=== PATIENT | female | born 1945 | race African-American/Black ===

== ENCOUNTER 2018-12-20 14:44 | Inpatient (IN) | payer MEDICARE, MEDICAID ==
[2018-12-20 15:35] LABS: #Eosinphils 0.1 thou/uL (0.0-0.7); #Lymphocytes 1.1 thou/uL (1.20-3.40); #Monocytes 0.3 thou/uL (0.11-0.59); #Neutrophils 6.7 thou/uL (1.40-6.50); %Basophils 0.5 % (0.0-1.0); %Eosinophils 0.7 % (0.0-10.0); %Lymphocytes 12.8 % (21.0-51.0); %Monocytes 3.9 % (0.0-10.0); %Neutrophils 82.1 % (42.0-75.0); Hemoglobin 12.9 g/dL (12.0-16.0); Mean Corpuscular HGB CONC 31.2 g/dL (32.0-36.0); Mean Corpuscular Hemoglobin 28.6 pg (27.0-31.0); Mean Corpuscular Volume 91.7 fL (78.0-98.0); Mean Platelet Volume 9.3 fL (7.4-10.4); Platelet Count 201 thou/uL (130-400); RBC Distribution Width 19.7 % (11.5-14.5); Red Blood Cell (RBC) Count 4.49 mill/uL (4.20-5.40); White Blood Cell (WBC) Count 8.2 thou/uL (4.8-10.8)
[2018-12-20 15:43] LABS: ALT (SGPT) 12 U/L (8-55); AST (SGOT) 15 U/L (5-34); Albumin 4.1 g/dL (3.4-4.8); Alkaline Phosphatase 60 U/L (40-150); Anion Gap 16 mmol/L (10-20); BUN (Urea Nitrogen) 13 mg/dL (9.8-20.1); Bilirubin, Total 0.7 mg/dL (0.2-1.2); Calc. Creatinine Clearance 0 mL/min (70-130); Calcium 10.2 mg/dL (7.8-10.44); Carbon Dioxide 29 mmol/L (23-31); Chloride 93 mmol/L (98-107); Estimated GFR-MDRD 10; Globulin 3.8 g/dL (2.4-3.5); Glucose 195 mg/dL (83-110); Protein, Total 7.9 g/dL (6.0-8.3); Sodium 134 mmol/L (136-145)
[2018-12-20 16:07] LABS: CKMB 1.4 ng/mL (0-6.6)
--- NOTE | 2018-12-20 16:35 | PDOC.FPRHP ---
- History of Present Illness Chief Complaint: chest pain History of Present Illness: 73 yo F with PMH ESRD on HD, DM2 is transferred from [facility] for HTN urgency. Patient received HD this am and reported chest pain which prompted her to go to ER from dialysis. Reports L sided chest pain, feels like pressure. Reports nausea, no vomiting. No radiation. No aggravating or alleviating factors. Pain 7/10 and is unchanged from earlier today. Says she has had similar pain in past but cannot remember when. Reports headache. Denies numbness , tingling, vision changes. Patient has slow speech and cannot remember much. Grandson in room reports she was more talkative earlier in day. Patient lives with daughter. Daughter gives medications and patient unaware if she has missed any doses. However, ER reported that she has missed several days of clonidine. ED Course: 20 labetalol, 10 hydralazine, 325 ASA, 4mg morphine, nitro paste, 40 labetalol, 4 mg zofran, 20 labetalol - Allergies/Adverse Reactions Allergies Allergy/AdvReac Type Severity Reaction Status Date / Time heparin (porcine) Allergy Verified 04/03/17 18:05 - Home Medications Medication Instructions Recorded Confirmed Type Lanthanum Carbonate [Fosrenol] 1,000 mg PO DAILY 04/03/17 04/03/17 History Lisinopril 20 mg PO DAILY 04/03/17 04/03/17 History Minoxidil 10 mg PO DAILY 04/03/17 04/03/17 History Pantoprazole [Protonix] 40 mg PO DAILY PRN 04/03/17 04/03/17 History Simethicone [Gas Relief] 80 mg PO DAILY 04/03/17 04/03/17 History glipiZIDE [Glucotrol Xl] 10 mg PO DAILY 04/03/17 04/03/17 History hydrALAZINE HCl 25 mg PO DAILY 04/03/17 04/03/17 History Amlodipine [Norvasc] 10 mg PO DAILY #30 tab 04/07/17 Rx Carvedilol [Coreg] 25 mg PO BID-WM #60 tab 04/07/17 Rx hydrALAZINE [Apresoline] 50 mg PO TID #0 tab 04/07/17 Rx - History PMHx: DM2, ESRD on HD, HTN, CAD, anemia PSHx: L arm fistula, cath with L stent FHx: patient unable to remember Social: No tobacco, alcohol, drug use. - Review of Systems General: denies: fever/chills Eyes: denies: vision changes ENT: denies: nasal congestion Respiratory: denies: cough, shortness of breath Cardiovascular: reports: chest pain. denies: palpitation, edema Gastrointestinal: reports: nausea. denies: vomiting, abdominal pain Genitourinary: denies: incontinence, dysuria Skin: denies: rashes, lesions Musculoskeletal: denies: pain, tenderness Neurological: denies: numbness, syncope - Vital signs BP: 222/99 HR: 82 RR: 22 Tmax: 98.1 Pox: 99% on RA Wt: 84 kg - Physical Exam Constitutional: well developed -Constitutional: flat affect HEENT: normocephalic and atraumatic, PERRLA, conjunctiva clear, grossly normal vision, grossly normal hearing, oropharynx clear, other (dry mucus membranes) Neck: supple, trachea midline Heart: RRR, normal S1/S2, pulses present, no edema Lungs: CTAB, no respiratory distress, no rales/rhonchi, no wheezing Abdomen: soft, non-tender, bowel sounds present Musculoskeletal: normal structure, normal tone Neurological: no focal deficit Skin: no rash/lesions, other (decreased cap refill) Heme/Lymphatic: no unusual bruising or bleeding Psychiatric: other (flat affect) FMR H&P: Results - Labs Result Diagrams: 12/20/18 15:25 12/20/18 15:11 Lab results: WBC 8.2 thou/uL (4.8-10.8) 12/20/18 15:25 Hgb 12.9 g/dL (12.0-16.0) 12/20/18 15:25 Hct 41.2 % (36.0-47.0) 12/20/18 15:25 MCV 91.7 fL (78.0-98.0) 12/20/18 15:25 Plt Count 201 thou/uL (130-400) 12/20/18 15:25 Neutrophils % 82.1 % (42.0-75.0) H 12/20/18 15:25 Sodium 134 mmol/L (136-145) L 12/20/18 15:11 Potassium 4.0 mmol/L (3.5-5.1) 12/20/18 15:11 Chloride 93 mmol/L (98-107) L 12/20/18 15:11 Carbon Dioxide 29 mmol/L (23-31) 12/20/18 15:11 BUN 13 mg/dL (9.8-20.1) 12/20/18 15:11 Creatinine 4.48 mg/dL (0.6-1.1) H 12/20/18 15:11 Glucose 195 mg/dL (83-110) H 12/20/18 15:11 Calcium 10.2 mg/dL (7.8-10.44) 12/20/18 15:11 Total Bilirubin 0.7 mg/dL (0.2-1.2) 12/20/18 15:11 AST 15 U/L (5-34) 12/20/18 15:11 ALT 12 U/L (8-55) 12/20/18 15:11 Alkaline Phosphatase 60 U/L (40-150) 12/20/18 15:11 CK-MB (CK-2) 1.4 ng/mL (0-6.6) 12/20/18 15:11 B-Natriuretic Peptide 890.8 pg/mL (0-100) H 12/20/18 15:25 Serum Total Protein 7.9 g/dL (6.0-8.3) 12/20/18 15:11 Albumin 4.1 g/dL (3.4-4.8) 12/20/18 15:11 FMR H&P: A/P - Problem List (1) Hypertensive urgency Current Visit: Yes Status: Acute Code(s): I16.0 - HYPERTENSIVE URGENCY (2) Chest pain Current Visit: Yes Status: Acute Code(s): R07.9 - CHEST PAIN, UNSPECIFIED (3) Diabetes mellitus Current Visit: No Status: Acute Code(s): E11.9 - TYPE 2 DIABETES MELLITUS WITHOUT COMPLICATIONS (4) ESRD (end stage renal disease) Current Visit: No Status: Acute Code(s): N18.6 - END STAGE RENAL DISEASE (5) HLD (hyperlipidemia) Current Visit: No Status: Acute Code(s): E78.5 - HYPERLIPIDEMIA, UNSPECIFIED (6) HTN (hypertension) Current Visit: No Status: Acute Code(s): I10 - ESSENTIAL (PRIMARY) HYPERTENSION - Plan 73 yo F with PMH ESRD on HD, DM2 presents with HTN and chest pain. HTN urgency - s/p multiple prns in outside ED, EMS - no signs of end organ damage at this time. Unsure of baseline mental status. Will discuss this with daughter when present. - could be 2/2 possible medication noncompliance, rebound from missed clonidine - SBP initially 240s. Goal BP 180-190s for now - Labetalol prn, hydralazine prn, zofran prn and restart home medications Chest pain w/ indeterminate trop - trop 0.037, at baseline compared to prior. Will continue to trend. - no EKG changes - Heart score 5 - nitro paste on, nitro prn, morphine prn ESRD on HD - T//Sat - continue home fosrenol HTN - continue home carvedilol ,clonidine, lisinopril, hydralazine, minoxidil DM2 - accuchecks and SSI for now - will restart home glipizide CAD s/p stent - continue home ASA, statin GERD - continue home PPI Diet: Renal/CC Ppx: SCDs (allergy to heparin) Dispo: admit to telemtry, expected stay >2 midnights Case discussed with Dr. Phillips. FMR H&P: Upper Level - Pertinent history 73F taken to outside ER after developing CP after dialysis. She has had this CP on and off for the past 3 days. It is described as a squeezing pressure that is left-sided and does not radiate. Patient has known CAD but all of her procedures as well as her night monitor are at [facility]. She was given 60mg Labetalol, 10 mg hydralazine, and a nitro patch en route. Her CP resolved at outside facility, per ED physician. Here, her CP has returned. - Pertinent findings 209/89 mmHg 79 bpm 22RR 100% on RA 98.1F Gen: no apparent distress; very flat affect; answering questions appropriately HEENT: dry MM CV: RRR, no murmurs Pulm: CTA-B Abd: soft; nontender; no distention Ext: no cyanosis or edema EKG: no signs of ischemia or infarct CXR at outside facility read as negative CBC all normal Na: 134 trop: .037, appears to be at baseline BNP: 890 - Plan Date/Time: 12/20/18 1635 I, Yimi Yoo, have evaluated this patient and agree with findings/plan as outlined by international representative resident. Pertinent changes/additions are listed here. HTN urgency: no signs of end organ damage at this time. Troponin and EKG not consistent with ACS, though we will continue to trend trops and repeat EKGs. This is likely due to medication non-compliance as patient has skipped her clonidine for the last several days. We will get further history from the daughter when she arrives, who is more familiar with patients baseline and PMH. Systolic BP near 190 mmHg as of now. Will try to keep it between 180-190 mmHg for the first 12 hours since she presented with systolic near 250 mmHg. Labetalol 20 mg IV q15m to maintain appropriate pressures. If she becomes resistant to IV push medications or starts to show signs of end organ damage, we will switch her to a cardene gtt. CAD: will speak with daughter regarding her prior history. Chart review reveals prior stent placement, though this was never verified. HEART score of 5 ESRD on HD: just finished dialysis. Will consult Nephro if she needs extended stay in hospital. Addendum - Attending - Attending Attestation Date/Time: 12/20/18 2417 I personally evaluated the patient and discussed the management with Dr. Sandoval / Fredo. I agree with the History, Examination, Assessment and Plan documented above with any addition or exceptions noted below. Patient is a 73-year-old female with history of end stage renal disease on hemodialysis and uncontrolled hypertension presenting with chest pain and elevated blood pressures. Patient began having chest pain after her dialysis session earlier today. Blood pressures obtained which were highly elevated and therefore she was sent to the emergency room for evaluation. Initial enzymes and EKG were normal but the patient was transferred to this institution for higher level of care. Upon arrival she was noted to have systolic blood pressure s greater than 220. She was given nitroglycerin as well as hydralazine and labetalol. Repeat cardiac enzymes were indeterminate, which appears to be the patients chronic baseline. Per the patients family member, she has likely been missing doses of her medication over the last few days. also, I noted in previous records that she apparently had a heart cath in 2017 at [facility] in [place] which was negative, though she does have a history of coronary artery disease. patient will be admitted to telemetry for hypertensive urgency. She currently does not have any evidence of end organ damage, but we will trend her troponins as well as EKGs and monitor on telemetry. We will work to get her blood pressures under better control with PRN medications and resume her home medications to try and obtain better control. Suspect that once we resume her home medications her condition will improve, however if it does not she may need to be transferred to the intensive care unit for titratable IV therapy. consider nephrology consultation if it appears she will have a prolonged stay as she will likely need dialysis on Saturday.continue other home medications for her chronic medical conditions and titrate as needed. Rachel Phillips MD
[2018-12-20] MEDS ORDERED: Minoxidil 10 MG TAB PO SCH ×2 (18:00→18:45)
[2018-12-20 18:46] LABS: Troponin I 0.036 ng/mL (< 0.028)
[2018-12-20 21:38] LABS: Troponin I 0.034 ng/mL (< 0.028)
[2018-12-20 21:55] VITALS: BMI 24.5
[2018-12-20] MEDS ORDERED: Ondansetron ODT 4 MG TAB PO PRN (22:52)
[2018-12-20] MEDS ORDERED: Dextrose 5% in Water 1,000 ML IV PRN (22:52)
[2018-12-20] MEDS ORDERED: Nitroglycerin 0.4 MG TAB 1 EACH PO PRN (22:52)
[2018-12-20] MEDS ORDERED: Atorvastatin Calcium 20 MG TAB PO SCH (22:52)
[2018-12-20] MEDS ORDERED: HumaLOG 300 UNITS/3 ML VIAL SC PRN (22:52)
[2018-12-20] MEDS ORDERED: hydrALAZINE 20 MG/ML VIAL SLOW IVP PRN (22:52)
[2018-12-20] MEDS ORDERED: Morphine 4 MG/ML VIAL SLOW IVP PRN (22:52)
[2018-12-20] MEDS ORDERED: Dextrose 50% Abboject 50 ML SYRINGE SLOW IVP PRN (22:52)
[2018-12-20] MEDS ORDERED: Acetaminophen 325 MG TAB PO PRN (22:52)
[2018-12-20] MEDS ORDERED: Labetalol HCl 100 MG/20 ML VIAL SLOW IVP PRN (22:52)
[2018-12-20] MEDS ORDERED: Ondansetron PF 4 MG/2 ML Vial IVP PRN (22:52)
[2018-12-20] MEDS ORDERED: cloNIDine 0.3 MG TAB PO SCH (23:15)
[2018-12-20] MEDS ORDERED: Carvedilol 25 MG TAB PO SCH (23:15)
[2018-12-20 23:34] LABS: Troponin I 0.038 ng/mL (< 0.028)
[2018-12-20 23:52] LABS: INR-International Normal Ratio 3.1; Prothrombin Time 31.7 SEC (12.0-14.7)
[2018-12-21 02:55] LABS: Troponin I 0.044 ng/mL (< 0.028)
--- NOTE | 2018-12-21 06:19 | PDOC.FM ---
- Subjective Subjective: Ms. Otoole feels better this morning. Chest pain resolved last night. Tolerating PO intake well. Reports mild headache that has improved compared to last night. Nitro patch is off. Daughter not present. Patient has no concerns. Patient more talkative than on admission. Seems to have some difficulty remembering certain details. - Objective MAR Reviewed: Yes Vital Signs & Weight: Vital Signs (12 hours) Temp Pulse Resp BP BP Pulse Ox 12/21/18 03:29 98.5 F 78 18 164/74 H 98 12/21/18 01:30 165/80 H 12/20/18 23:47 99.1 F 80 16 190/80 H 100 12/20/18 23:31 190/80 H 12/20/18 23:02 99 12/20/18 21:37 98.6 F 88 18 202/96 H 100 Weight Weight 64.954 kg I&O: 12/19/18 12/20/18 12/21/18 06:59 06:59 06:59 Intake Total 350 Balance 350 Result Diagrams: 12/21/18 07:05 12/20/18 15:11 Phys Exam - Physical Examination Constitutional: NAD Respiratory: no wheezing, clear to auscultation bilateral Cardiovascular: RRR, no significant murmur Gastrointestinal: soft, non-tender, positive bowel sounds Musculoskeletal: no edema Neurological: non-focal Skin: normal turgor Dx/Plan (1) Hypertensive urgency Code(s): I16.0 - HYPERTENSIVE URGENCY Status: Acute (2) Chest pain Code(s): R07.9 - CHEST PAIN, UNSPECIFIED Status: Acute (3) Diabetes mellitus Code(s): E11.9 - TYPE 2 DIABETES MELLITUS WITHOUT COMPLICATIONS Status: Acute (4) ESRD (end stage renal disease) Code(s): N18.6 - END STAGE RENAL DISEASE Status: Acute (5) HLD (hyperlipidemia) Code(s): E78.5 - HYPERLIPIDEMIA, UNSPECIFIED Status: Acute (6) HTN (hypertension) Code(s): I10 - ESSENTIAL (PRIMARY) HYPERTENSION Status: Acute - Plan Plan: 73 yo F with PMH ESRD on HD, DM2 presents with HTN and chest pain. HTN urgency, improving - no signs of end organ damage at this time. Unsure of baseline mental status. Will discuss this with daughter when present. - could be 2/2 possible medication noncompliance, rebound from missed clonidine - SBP initially 240s. Goal BP 180-190s initially. BP 160s now without any recent prns. - Labetalol prn, hydralazine prn, zofran prn and continue home medications today Chest pain w/ indeterminate trop, improved - chest pain resolved - trop 0.037->0.044 max - no EKG changes - Heart score 5 - continue home isosorbide mononitrate ESRD on HD - T//Sat - continue home fosrenol HTN - continue home amlodipine, carvedilol, clonidine, lisinopril DM2 - accuchecks and SSI for now - continue home glipizide CAD s/p stent - continue home ASA, statin, warfarin GERD - continue home PPI Diet: Renal/CC Ppx: SCDs (allergy to heparin) Addendum - Attending - Attending Attestation Date/Time: 12/21/18 2508 I personally evaluated the patient and discussed the management with Dr. Sandoval. I agree with the History, Examination, Assessment and Plan documented above with any addition or exceptions noted below. Patient improved this morning, still hypertensive but improved. Resuming all home meds today and will titrate as needed. Not due for HD until Saturday so will hold off on Nephro consultation. Labs overall stable.
[2018-12-21 07:24] LABS: #Eosinphils 0.1 thou/uL (0.0-0.7); #Lymphocytes 1.4 thou/uL (1.20-3.40); #Monocytes 0.6 thou/uL (0.11-0.59); %Basophils 0.1 % (0.0-1.0); %Eosinophils 1.9 % (0.0-10.0); %Lymphocytes 22.4 % (21.0-51.0); %Monocytes 9.7 % (0.0-10.0); %Neutrophils 65.9 % (42.0-75.0); Hemoglobin 12.2 g/dL (12.0-16.0); Mean Corpuscular HGB CONC 31.7 g/dL (32.0-36.0); Mean Corpuscular Volume 91.6 fL (78.0-98.0); Mean Platelet Volume 9.8 fL (7.4-10.4); Platelet Count 195 thou/uL (130-400); RBC Distribution Width 19.6 % (11.5-14.5); Red Blood Cell (RBC) Count 4.21 mill/uL (4.20-5.40); White Blood Cell (WBC) Count 6.1 thou/uL (4.8-10.8)
[2018-12-21 07:51] LABS: Anion Gap 17 mmol/L (10-20); BUN (Urea Nitrogen) 23 mg/dL (9.8-20.1); Calc. Creatinine Clearance 9 mL/min (70-130); Calcium 9.6 mg/dL (7.8-10.44); Carbon Dioxide 26 mmol/L (23-31); Cardiac Risk 3.3 (Less than 4.5); Chloride 94 mmol/L (98-107); Cholesterol 140 mg/dl (< 200 Desired); Estimated GFR-MDRD 9; Glucose 164 mg/dL (83-110); HDL Cholesterol 43 mg/dL (>60 Neg Risk); LDL Cholesterol, Calculated 71 mg/dL; Potassium 4.5 mmol/L (3.5-5.1); Sodium 132 mmol/L (136-145); Triglycerides 128 mg/dL (Less than 150)
[2018-12-21] MEDS ORDERED: Carvedilol 25 MG TAB PO SCH (08:00)
[2018-12-21] MEDS ORDERED: Atorvastatin Calcium 20 MG TAB PO SCH (09:00)
[2018-12-21] MEDS ORDERED: Lisinopril 20 MG TAB PO SCH (09:00)
[2018-12-21] MEDS ORDERED: Amlodipine 10 MG TAB PO SCH (09:00)
[2018-12-21] MEDS ORDERED: Folic Acid/Vit B Comp W-C PO SCH (09:00)
[2018-12-21] MEDS ORDERED: Aspirin 81 mg Enteric Coated Tablet PO SCH ×2 (09:00)
[2018-12-21] MEDS ORDERED: Carvedilol 3.125 MG TAB PO SCH (09:00)
[2018-12-21] MEDS ORDERED: hydrALAZINE 25 MG TAB PO SCH (09:00)
[2018-12-21] MEDS ORDERED: cloNIDine 0.3 MG TAB PO SCH (09:00)
[2018-12-21] MEDS ORDERED: Minoxidil 10 MG TAB PO SCH (09:00)
[2018-12-21] MEDS: cloNIDine 0.3 MG TAB PO SCH ×2 (09:03→14:51)
[2018-12-21] MEDS: Carvedilol 6.25 MG TAB PO SCH ×2 (09:04→16:46)
[2018-12-21] MEDS: Lanthanum Carbonate 500 mg Tablet PO SCH ×3 (09:05→16:46)
[2018-12-21] MEDS ORDERED: Warfarin Sodium 5 MG TAB PO SCH (17:00)
[2018-12-21 17:21] VITALS: BP 144/67; TEMP 98.3
[2018-12-21 17:42] LABS: HBSAg Index 0.25 S/CO (0-0.99); Hep B Surf Ag Non-Reactive S/CO (NonReactive)
--- NOTE | 2018-12-22 13:58 | DIS ---
DATE OF ADMISSION: 12/20/2018 DATE OF DISCHARGE: 12/21/2018 RESIDENT: Rosy Sandoval DO ADMITTING ATTENDING: Carmelo Kim MD DISCHARGE ATTENDING: Carmelo Kim MD. CONSULTS: None. PROCEDURES: None. PRIMARY DIAGNOSES: 1. Hypertensive urgency. 2. Indeterminate troponin. 3. Chest pain. SECONDARY DIAGNOSES: 1. End-stage renal disease, on hemodialysis. 2. Hypertension. 3. Type 2 diabetes. 4. Coronary artery disease status post stent. 5. Gastroesophageal reflux disease. DISCHARGE MEDICATIONS: 1. Pantoprazole 40 mg p.o. daily p.r.n. 2. Lisinopril 20 mg p.o. daily. 3. Fosrenol 1000 mg p.o. t.i.d. with meals. 4. Glipizide 10 mg p.o. b.i.d. 5. Amlodipine 10 mg p.o. daily. 6. RenaPlex-D tablet one tablet p.o. daily. 7. Isosorbide mononitrate 30 mg p.o. b.i.d. 8. Clonidine 0.3 mg p.o. t.i.d. 9. Atorvastatin 20 mg p.o. daily. 10. Aspirin 81 mg p.o. daily. 11. Warfarin 5 mg p.o. daily. 12. Carvedilol 6.25 mg p.o. b.i.d. with meals. DISCONTINUED MEDICATIONS: None. HISTORY OF PRESENT ILLNESS: This is a 73-year-old female who was transferred from [facility] emergency room for hypertensive urgency. The patient reported that after hemodialysis that morning, she began to have chest pain, which prompted her to go to the ER from dialysis. Chest pain was left-sided, associated with nausea and headache. She denied any numbness or vision changes. It was reported that the patient could have missed several days of home clonidine resulting in a blood pressure. Systolic blood pressure initially reported was 245. Medications were used to slowly lower this throughout the hospitalization. Home medications were restarted. The patient's chest pain spontaneously resolved. There were no EKG changes. Her troponin was indeterminate at 0.037. These were trended and not elevated any further. On review of records, this appears to be the patient's baseline troponin level. There was no concern for ACS. The patient's blood pressure gradually improved and she was stable on home medications without any p.r.n's needed. Blood pressure was in the 130s to 140s systolic at time of discharge. DISPOSITION: Stable. DISCHARGE INSTRUCTIONS: 1. Location, home. 2. Diet, heart healthy and diabetic. 3. Activity, as tolerated. 4. Follow up with PCP, Dr. Eliseo Love within 7 days. Job ID: [id number]
== END 2018-12-21 18:39 | disposition home or self-care (01) | DRG 304 ==
LOC: ERS 14:44 → 2NO 16:23
PROVIDERS: ADMIT Student in an Organized Health Care Education/Training Program; ATTEND Student in an Organized Health Care Education/Training Program
DX: I16.0 Hypertensive urgency (principal); N18.6 End stage renal disease; E78.5 Hyperlipidemia, unspecified; I12.0 Hypertensive chronic kidney disease with stage 5 chronic kidney disease or end stage renal disease; R07.9 Chest pain, unspecified; I25.10 Atherosclerotic heart disease of native coronary artery without angina pectoris; K21.9 Gastro-esophageal reflux disease without esophagitis; E11.22 Type 2 diabetes mellitus with diabetic chronic kidney disease; Z91.14 Patient's other noncompliance with medication regimen; Z98.61 Coronary angioplasty status; Z99.2 Dependence on renal dialysis
CPT/HCPCS: 36415; 36416; 80048; 80053; 80061; 82553; 83880; 84484; 85025; 85610; 87340; 93005; 94760; 96374; 96376; J2405; J3490

== ENCOUNTER 2019-01-20 10:36 | Emergency (ER) | payer MEDICARE, MEDICAID ==
[2019-01-20 11:24] LABS: Prothrombin Time 46.4 SEC (12.0-14.7)
[2019-01-20 11:33] LABS: #Eosinphils 0.1 thou/uL (0.0-0.7); #Lymphocytes 1.3 thou/uL (1.20-3.40); #Monocytes 0.4 thou/uL (0.11-0.59); #Neutrophils 4.2 thou/uL (1.40-6.50); %Basophils 0.8 % (0.0-1.0); %Eosinophils 2.2 % (0.0-10.0); %Lymphocytes 21.3 % (21.0-51.0); %Monocytes 6.5 % (0.0-10.0); %Neutrophils 69.2 % (42.0-75.0); Hemoglobin 9.6 g/dL (12.0-16.0); Mean Corpuscular HGB CONC 31.5 g/dL (32.0-36.0); Mean Corpuscular Hemoglobin 29.2 pg (27.0-31.0); Mean Corpuscular Volume 92.9 fL (78.0-98.0); Mean Platelet Volume 9.8 fL (7.4-10.4); Platelet Count 170 thou/uL (130-400); RBC Distribution Width 20.3 % (11.5-14.5); Red Blood Cell (RBC) Count 3.28 mill/uL (4.20-5.40); White Blood Cell (WBC) Count 6.1 thou/uL (4.8-10.8)
[2019-01-20 11:38] LABS: ALT (SGPT) 8 U/L (8-55); AST (SGOT) 12 U/L (5-34); Albumin 3.7 g/dL (3.4-4.8); Alkaline Phosphatase 64 U/L (40-150); Anion Gap 11 mmol/L (10-20); BUN (Urea Nitrogen) 14 mg/dL (9.8-20.1); Bilirubin, Total 0.4 mg/dL (0.2-1.2); Calc. Creatinine Clearance 0 mL/min (70-130); Calcium 9.7 mg/dL (7.8-10.44); Carbon Dioxide 33 mmol/L (23-31); Chloride 95 mmol/L (98-107); Estimated GFR-MDRD 11; Globulin 3.1 g/dL (2.4-3.5); Glucose 176 mg/dL (83-110); Potassium 3.3 mmol/L (3.5-5.1); Protein, Total 6.8 g/dL (6.0-8.3); Sodium 136 mmol/L (136-145)
== END 2019-01-20 14:58 | disposition home or self-care (01) ==
LOC: ERS 10:36
DX: T82.838A Hemorrhage due to vascular prosthetic devices, implants and grafts, initial encounter (principal); R55 Syncope and collapse; E11.9 Type 2 diabetes mellitus without complications; D50.9 Iron deficiency anemia, unspecified; I12.0 Hypertensive chronic kidney disease with stage 5 chronic kidney disease or end stage renal disease; N18.6 End stage renal disease
CPT/HCPCS: 36415; 80053; 85025; 85610; 85730; 93005

== ENCOUNTER 2020-01-05 08:06 | Observation (INO) | payer MEDICARE, MEDICAID ==
[2020-01-05 08:44] LABS: #Eosinphils 0.3 thou/uL (0.0-0.7); #Lymphocytes 1.5 thou/uL (1.20-3.40); #Monocytes 0.6 thou/uL (0.11-0.59); #Neutrophils 6.2 thou/uL (1.40-6.50); %Basophils 0.3 % (0.0-1.0); %Eosinophils 3.2 % (0.0-10.0); %Lymphocytes 16.9 % (21.0-51.0); %Monocytes 7.2 % (0.0-10.0); %Neutrophils 72.5 % (42.0-75.0); Hemoglobin 12.9 g/dL (12.0-16.0); Mean Corpuscular HGB CONC 33.5 g/dL (32.0-36.0); Mean Corpuscular Hemoglobin 31.7 pg (27.0-31.0); Mean Corpuscular Volume 94.7 fL (78.0-98.0); Platelet Count 145 thou/uL (130-400); RBC Distribution Width 17.8 % (11.5-14.5); Red Blood Cell (RBC) Count 4.08 mill/uL (4.20-5.40); White Blood Cell (WBC) Count 8.6 thou/uL (4.8-10.8)
--- NOTE | 2020-01-05 09:02 | RAD ---
EXAM: Portable chest PROVIDED CLINICAL HISTORY: Chest pain COMPARISON: 05/30/2019 FINDINGS: Cardiac and mediastinal silhouette is unchanged in appearance. Tracheal deviation rightward is redemo nstrated, presumably on the basis of goiter. No focal consolidation, pleural fluid or pneumothorax evident. IMPRESSION: No evidence for an acute cardiopulmonary process.
[2020-01-05 09:06] LABS: ALT (SGPT) 13 U/L (8-55); AST (SGOT) 31 U/L (5-34); Albumin 4.5 g/dL (3.4-4.8); Alkaline Phosphatase 118 U/L (40-110); Anion Gap 24 mmol/L (10-20); BUN (Urea Nitrogen) 50 mg/dL (9.8-20.1); Bilirubin, Total 0.4 mg/dL (0.2-1.2); CK (CPK) 55 U/L (29-168); Calc. Creatinine Clearance 0 mL/min (70-130); Calcium 9.9 mg/dL (7.8-10.44); Carbon Dioxide 19 mmol/L (23-31); Chloride 93 mmol/L (98-107); Estimated GFR-MDRD 6; Glucose 215 mg/dL (83-110); Lipase 125 U/L (8-78); Protein, Total 8.5 g/dL (6.0-8.3); Sodium 130 mmol/L (136-145)
[2020-01-05] MEDS ORDERED: hydrALAZINE 20 MG/ML VIAL ONE (09:13)
[2020-01-05 09:30] LABS: Platelet Morphology Comment Appears Adequate; RBC Morphology Normal
[2020-01-05] MEDS ORDERED: Nitroglycerin 2% Ointment 1 INCH/1 GM Packet ONE (09:41)
[2020-01-05 10:49] LABS: Troponin I 0.035 ng/mL (< 0.028)
[2020-01-05 12:47] LABS: PTT 31.3 SEC (22.9-36.1); Prothrombin Time 13.1 SEC (12.0-14.7)
--- NOTE | 2020-01-05 13:29 | CON ---
DATE OF CONSULTATION: HISTORY OF PRESENT ILLNESS: Ms. Otoole is a 75-year-old black female with ESRD and was admitted for chest pain/shortness of breath. Chest x-ray initially showed no acute cardiopulmonary process. However, BNP is elevated. In addition, troponin I was noted to be elevated. For that reason, the patient will be admitted. She will be undergoing hemodialysis today due to the potassium of 6.0. REVIEW OF SYSTEMS: Positive for chest pain. Positive for mild shortness of breath. No nausea. No vomiting. No diarrhea. No constipation. No productive cough. No fever or chills. No abdominal pain. No gross hematuria. No dysuria. No urinary frequency. No syncopal episode. HOME MEDICATIONS: Include the following; 1. Glipizide 10 mg p.o. b.i.d. 2. Clonidine 0.3 mg p.o. t.i.d. 3. Coumadin 5 mg daily. 4. Protonix 40 mg daily p.r.n. 5. Lisinopril 20 mg daily. 6. Fosrenol 1000 mg p.o. t.i.d. with meals. 7. Imdur ER 30 mg p.o. b.i.d. 8. Carvedilol 6.25 mg p.o. b.i.d. 9. Atorvastatin 20 mg daily. 10. Aspirin 81 mg daily. 11. Amlodipine 10 mg tablet once a day. PAST MEDICAL HISTORY: 1. ESRD from hypertensive nephropathy. 2. Longstanding history of hypertension. 3. History of hyperphosphatemia. 4. Hyperlipidemia. 5. History of coronary artery disease. PAST SURGICAL HISTORY: 1. Status post AV fistula placement. 2. Status post cardiac cath with a stent placement. 3. Status post cuffed hemodialysis catheter placement. SOCIAL HISTORY: The patient lives with her daughter. She lives in the [facility]. No tobacco. No alcohol. No IV drug abuse. Status post blood transfusion. ALLERGIES: Unknown PHYSICAL EXAMINATION: VITAL SIGNS: Blood pressure 122/70, heart rate 70. GENERAL: The patient is awake, alert, comfortable, not in distress. SKIN: Adequate turgor. HEENT: She has pinkish conjunctivae. Anicteric sclerae. NECK: No neck mass. No carotid bruits. No JVD. CHEST: No deformities. LUNGS: Clear breath sounds. HEART: Normal sinus rhythm. No murmurs. No gallops. No rubs. ABDOMEN: Globular, soft, and nontender. No masses. EXTREMITIES: No edema. No deformities. LABORATORY DATA: Laboratories of January 05, 2020; white count 8.6, hemoglobin 12.9. Sodium 130, potassium 6, chloride 93, carbon dioxide 19, BUN 50, creatinine 8.07 , glucose 215, AST 31, ALT 13, albumin 4.5, and lipase 125. BNP is 1057. Troponin I is 0.035. IMAGING DATA: Chest x-ray, no acute cardiopulmonary process. ASSESSMENT AND PLAN: 1. Chest pain. The patient will be admitted for rule out myocardial infarction. 2. End-stage renal disease, stable. We will continue current hemodialysis regimen on Saturday, , and Saturday. Fluid removal as tolerated by this patient. Please note, her potassium is noted at 6.0. She is being given Kayexalate and lactulose. 3. Mild hyperkalemia for hemodialysis today. Agree with current management. Job ID: [id number] MTDD
[2020-01-05] MEDS ORDERED: Ondansetron PF 4 MG/2 ML Vial IVP PRN ×2 (13:32→14:58)
[2020-01-05] MEDS ORDERED: Ondansetron ODT 4 MG TAB SL PRN (13:32)
[2020-01-05] MEDS ORDERED: Senokot S 8.6-50 MG TAB PO PRN (14:58)
[2020-01-05] MEDS ORDERED: Acetaminophen 325 MG TAB PO PRN (14:58)
[2020-01-05] MEDS ORDERED: Ondansetron ODT 4 MG TAB PO PRN (14:58)
[2020-01-05] MEDS ORDERED: Calcium Carbonate 500 MG ChewTAB PO PRN (14:58)
[2020-01-05] MEDS ORDERED: Nitroglycerin 0.4 MG TAB (25 Tab Bottle) PO PRN (15:04)
[2020-01-05] MEDS ORDERED: NIFEdipine XL 30 MG TAB PO SCH ×2 (15:15→21:00)
[2020-01-05] MEDS ORDERED: Lisinopril 20 MG TAB PO SCH (15:15)
[2020-01-05] MEDS ORDERED: Isosorbide Mononitrate (ER) 30 MG TAB PO SCH (15:15)
[2020-01-05 17:13] VITALS: BMI 22.0
[2020-01-05] MEDS ORDERED: Dextrose 50% Abboject 50 ML SYRINGE SLOW IVP PRN (17:24)
[2020-01-05] MEDS ORDERED: Insulin Regular 300 UNITS/3 ML VIAL SC PRN ×2 (17:24)
[2020-01-05] MEDS ORDERED: Dextrose 5% in Water 1,000 ML IV PRN (17:24)
--- NOTE | 2020-01-05 17:57 | HP ---
PRIMARY CARE: [facility]. The patient follows Dr. Love in [place]. PRIMARY DIAMOND GRADER: Dr. Peterson. Phone number is [phone]. His fax number is [phone]. CHIEF COMPLAINT: Chest discomfort. HISTORY OF PRESENT ILLNESS: The patient is a 75-year-old female, with diabetes mellitus type 2, hypertension, and end-stage renal disease, on hemodialysis, presented to the emergency room with chest discomfort that started during dialysis earlier today. The chest discomfort was mild in intensity, pressure-like, precordial, without any radiation. Please note that the patient is a poor historian and not much information is available. She is unable to describe further. She also stated that she had mild shortness of breath, which has resolved. In the emergency room, her initial vital signs showed temperature 97.9, respirations of 22, pulse of 67, with a blood pressure of 178/121, and O2 saturation 100% on room air. She received aspirin and nitroglycerin by EMS. PAST MEDICAL HISTORY: 1. Hypertension. 2. Hyperlipidemia. 3. Coronary artery disease, details unavailable. 4. Secondary hyperparathyroidism. 5. GERD. PAST SURGICAL HISTORY: 1. Dialysis access. 2. Cardiac catheterization. ALLERGIES: THE PATIENT IS ALLERGIC TO HEPARIN. CURRENT HOME MEDICATIONS: Verified with the daughter over the phone: 1. Aspirin 81 mg daily. 2. Lipitor 20 mg daily. 3. Coreg 25 mg b.i.d. 4. Clonidine 0.3 b.i.d. 5. Glipizide 10 mg daily. 6. Isosorbide mononitrate 30 mg daily. 7. Lisinopril 20 mg daily. 8. Procardia XL 90 mg daily. SOCIAL HISTORY: The patient currently lives at home with her family in [facility]. No smoking, alcohol, or drug abuse. Her daughter makes her healthcare decision. She is full code. FAMILY HISTORY: Negative for heart disease. REVIEW OF SYSTEMS: Cannot be reliably obtained from the patient due to current mentation. PHYSICAL EXAMINATION: VITAL SIGNS: As discussed above. GENERAL: A 75-year-old female, in no apparent distress. Denies any chest discomfort at this time. HEENT: Head is atraumatic and normocephalic. Sclerae are anicteric. Moist mucous membranes. No oral lesion. NECK: Supple. No JVD appreciated. No carotid bruit. LUNGS: Clear to auscultation bilaterally. No wheezing, rales, or rhonchi. HEART: S1 and S2 present. Regular rate and rhythm. No rubs or gallops. ABDOMEN: Soft, nontender. Bowel sounds present. EXTREMITIES: No edema or calf tenderness. NEUROLOGIC: Grossly nonfocal. Moves all 4 extremities. PSYCHIATRIC: Alert and awake. Poor historian. SKIN: Warm and dry. LYMPH NODES: No palpable lymph nodes in the neck. PERIPHERAL VASCULAR: Radial pulses palpable bilaterally. MUSCULOSKELETAL: No joint swelling or tenderness. LABORATORY FINDINGS: CBC showed WBC 8.6 with hemoglobin 12.9, hematocrit 38.6, platelets of 145. PT, INR, and PTT, normal range. Chemistry showed sodium of 130, potassium 6, chloride 93, bicarb 19, BUN 50, creatinine 8.0. Glucose of 215. Troponin maximum was 0.035. BNP was 1057. Chest x-ray by my review was negative for infiltrate or edema. EKG by my review showed sinus rhythm with left axis deviation and left ventricular hypertrophy. IMPRESSION: 1. Chest discomfort, rule out acute coronary syndrome. 2. End-stage renal disease with hyperkalemia with potassium of 6.0 with metabolic acidosis. 3. Elevated troponins. 4. End-stage renal disease, on hemodialysis. 5. Hypertension. 6. Diabetes mellitus, type 2. 7. Gastroesophageal reflux disease. PLAN: The patient will be monitored on the telemetry unit. Serial troponins will be obtained. We will continue aspirin along with beta blockers and antihypertensives. We will schedule a Cardiolite stress test in a.m. We will recheck labs in a.m. Insulin sliding scale. The patient will be kept n.p.o. past midnight. The patient and the daughter stated understanding. Job ID: [id number]
[2020-01-05] MEDS: Carvedilol 25 MG TAB PO SCH (19:22)
[2020-01-05] MEDS: Famotidine 20 MG TAB PO SCH (21:01)
[2020-01-05] MEDS: cloNIDine 0.3 MG TAB PO SCH (21:01)
[2020-01-06] MEDS: cloNIDine 0.1 MG TAB PO PRN ×2 (01:23→11:48)
[2020-01-06 06:01] LABS: ALT (SGPT) 10 U/L (8-55); AST (SGOT) 15 U/L (5-34); Albumin 3.9 g/dL (3.4-4.8); Alkaline Phosphatase 91 U/L (40-110); Anion Gap 15 mmol/L (10-20); BUN (Urea Nitrogen) 24 mg/dL (9.8-20.1); Bilirubin, Total 0.4 mg/dL (0.2-1.2); Calc. Creatinine Clearance 8 mL/min (70-130); Carbon Dioxide 31 mmol/L (23-31); Chloride 90 mmol/L (98-107); Estimated GFR-MDRD 9; Globulin 3.3 g/dL (2.4-3.5); Glucose 168 mg/dL (83-110); Potassium 3.5 mmol/L (3.5-5.1); Protein, Total 7.2 g/dL (6.0-8.3); Sodium 132 mmol/L (136-145)
[2020-01-06] MEDS ORDERED: glipiZIDE 10 MG TAB PO SCH (07:30)
[2020-01-06] MEDS: Carvedilol 25 MG TAB PO SCH (07:40)
[2020-01-06] MEDS: Famotidine 20 MG TAB PO SCH (07:41)
[2020-01-06] MEDS: cloNIDine 0.3 MG TAB PO SCH (07:44)
[2020-01-06] MEDS ORDERED: Isosorbide Mononitrate (ER) 30 MG TAB PO SCH (09:00)
[2020-01-06] MEDS ORDERED: Lisinopril 20 MG TAB PO SCH (09:00)
[2020-01-06] MEDS ORDERED: NIFEdipine XL 90 MG TAB PO SCH (09:00)
[2020-01-06] MEDS ORDERED: Folic Acid/Vit B Comp W-C PO SCH (09:00)
[2020-01-06] MEDS ORDERED: Aspirin 81 mg Enteric Coated Tablet PO SCH (09:00)
[2020-01-06] MEDS ORDERED: Atorvastatin Calcium 20 MG TAB PO SCH (09:00)
[2020-01-06] MEDS ORDERED: Regadenoson 0.4 MG/5 ML SYRINGE ONE (09:52)
--- NOTE | 2020-01-06 10:42 | NM ---
EXAM: NM Cardiac Stress W EF WF PROVIDED CLINICAL HISTORY: Chest pain COMPARISON: None RADIOPHARMACEUTICAL: 32.9 millicuries technetium 99m labeled sestamibi IV stress 10.8 millicuries technetium 99m labeled sestamibi IV rest FINDINGS: There is normal, homogeneous distribution of radiotracer throughout the left ventricular myocardium. Gated data demonstrate normal myocardial wall motion and thickening with calculated LVEF 55%. Calculated TID is 1.01 IMPRESSION: 1. No scintigraphic evidence for ischemia. 2. Calculated LVEF 55%.
[2020-01-06 11:33] VITALS: TEMP 97.5
[2020-01-06 13:13] VITALS: BP 158/78
[2020-01-07] MEDS ORDERED: Famotidine 20 MG TAB PO SCH (09:00)
--- NOTE | 2020-01-07 09:48 | DIS ---
DATE OF ADMISSION: 01/05/2020 DATE OF DISCHARGE: 01/06/2020 DISCHARGE DISPOSITION: Home. FOLLOWUP: 1. Follow up with primary care physician, Dr. Love in [place]. 2. Follow up with Dr. Peterson. The patient was seen and examined on the day of discharge. Denies any new complaints. No chest pain, shortness of breath, or palpitations reported. DISCHARGE MEDICATIONS: Same as admission medication. No changes were made. BRIEF HOSPITAL COURSE: The patient is a 75-year-old female with diabetes mellitus type 2; hypertension; end-stage renal disease, on hemodialysis, presented to the emergency room with chest discomfort. The chest discomfort started during her dialysis session. She also had associated mild shortness of breath. Please refer to the history and physical for further details. The patient was admitted to the hospital with a diagnosis of chest discomfort, rule out acute coronary syndrome. Serial troponins were in the indeterminate range with a maximum troponin of 0.035. She was found to have a sodium of 130, potassium of 6.0 with bicarbonate of 19 and anion gap of 24. She underwent hemodialysis per Dr. Ruff. She underwent a Cardiolite stress test on 06 January 2020 that was negative for reversible ischemia. There was no wall motion abnormality. Calculated ejection fraction was 55% with a TID of 1.01. She appears stable for discharge and is chest pain-free. FINAL DIAGNOSES: 1. Chest discomfort, acute coronary syndrome ruled out. 2. Elevated troponins probably secondary to end-stage renal disease. 3. End-stage renal disease, on hemodialysis with hyperkalemia and metabolic acidosis, requiring dialysis on the day of admission. 4. Hypertension. 5. Diabetes mellitus type 2. 6. Gastroesophageal reflux disease. 7. Heparin allergy. The patient understands the plan of care. Job ID: [id number]
--- NOTE | 2020-01-08 14:15 | EKG ---
Test Reason : SOB Blood Pressure : / mmHG Vent. Rate : 069 BPM Atrial Rate : 069 BPM P-R Int : 168 ms QRS Dur : 082 ms QT Int : 424 ms P-R-T Axes : 040 -04 147 degrees QTc Int : 454 ms Normal sinus rhythm Left ventricular hypertrophy with repolarization abnormality Abnormal ECG Confirmed by DION BEDOYA, ESPINOZA ([id number]), metropolitan editor LONNIE JOHNSON ([id number]) on 01/08/2020 2:14:47 PM Referred By: Confirmed By:ESPINOZA ASHLEY MD
== END 2020-01-06 13:23 | disposition home or self-care (01) ==
LOC: ERS 08:06 → 2SW 11:33
PROVIDERS: ADMIT Internal Medicine; ATTEND Internal Medicine
DX: R07.89 Other chest pain (principal); I12.0 Hypertensive chronic kidney disease with stage 5 chronic kidney disease or end stage renal disease; E11.22 Type 2 diabetes mellitus with diabetic chronic kidney disease; N18.6 End stage renal disease; N25.81 Secondary hyperparathyroidism of renal origin; E87.5 Hyperkalemia; E87.2 Acidosis; K21.9 Gastro-esophageal reflux disease without esophagitis; I25.10 Atherosclerotic heart disease of native coronary artery without angina pectoris; Z79.82 Long term (current) use of aspirin; Z79.84 Long term (current) use of oral hypoglycemic drugs; Z79.899 Other long term (current) drug therapy; Z88.8 Allergy status to other drugs, medicaments and biological substances; Z99.2 Dependence on renal dialysis
CPT/HCPCS: 71045; 78452; 80053 ×2; 82550; 82962 ×2; 83690; 83880; 84484 ×2; 85025; 85610; 85730; 93005; 93017; 94760; 99285; A9500; 36415; 36416; 90935; G0257; G0378; J0360; J2785